=== PATIENT | male | born 1945 | race Caucasian/White ===

== ENCOUNTER 2018-01-25 09:29 | Day surgery (SDC) | payer MEDICARE, SELFPAY ==
--- NOTE | 2018-01-25 | PATH_ITS ---
[facility] Accession Number: [id number] . 01 Material submitted: . GE JUNCTION . 02 Diagnosis: Gastroesophageal Junction, Biopsy: Squamocolumnar junctional mucosa with chronic active inflammation and erosion. A PAS stain is negative for fungal organisms. Negative for intestinal metaplasia. Negative for dysplasia and malignancy. [facility]/01/29/2018 . 02 Electronically signed: . Jessica Shanks MD, Pathologist NPI- [id number] . 01 Gross description: . GE JUNCTION: Received in formalin are multiple fragment(s) of naylor, soft tissue measuring 1.2 x 0.3 x 0.2 cm in aggregate submitted entirely in 1 cassette(s) /CKI /CKI . 02 Microscopic: . A PAS stain was performed to evaluate for fungal organisms and is negative. The control stain showed appropriate reactivity. . 02 Pathologist provided ICD-10: R10.9 . 02 CPT . 878867, 257531 Performed at: 01 [facility] [address], [place], [place] [id number] MD Anirudh Trujillo MD Phone: [phone] Performed at: 02 [facility] [address] [place], [place] [id number] MD Frank Gayle MD Phone: [phone]
[2018-01-25 10:05] VITALS: BP 149/73; PULSE 53; RESP 15; TEMP 36.4; O2SAT 100; BMI 25.7
[2018-01-25] MEDS: SODIUM CHLORIDE 0.9% 1,000 ML 200 ML IV (10:23)
--- NOTE | 2018-01-25 10:46 | PM.HP.1 ---
History of Present Illness Date Patient Seen: 01/25/18 Time Patient Seen: 10:46 Chief complaint: EGD 14759 Narrative: Patient is gentleman with known Pierson's esophagus here for surveillance examination. He has had no dysphagia. He takes omeprazole regularly. 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) Family & Social History Family History: Reviewed 01/25/18 by Pawel Phillips MD Social History: household members spouse Meds Home Medications Medication Instructions Recorded Confirmed Type ferrous sulfate [iron] 325 mg PO DAILY 01/25/18 01/25/18 History multivitamin [One Daily] 1 tab PO DAILY 01/25/18 01/25/18 History niacin 1,000 mg PO BID 01/25/18 01/25/18 History omeprazole 20 mg PO DAILY 01/25/18 01/25/18 History psyllium husk [Metamucil] 0.4 g PO DAILY PRN 01/25/18 01/25/18 History tamsulosin 0.4 mg PO DAILY 01/25/18 01/25/18 History Allergies Allergy/AdvReac Type Severity Reaction Status Date / Time No Known Drug Allergies Allergy Verified 01/25/18 09:54 Review of Systems Review of Systems Has had a cough in the past. No active chest pain. No black or bloody bowel movements. No hematemesis. No seizures or blackouts. Exam Vital Signs (past 8 hours): - 01/25/18 10:05 Temperature 97.6 F Pulse Rate 53 L Respiratory Rate 15 Blood Pressure 149/73 H Pulse Oximetry 100 Oxygen Delivery Method Room Air Narrative Exam Narrative: Operative no apparent distress. Eyes nonicteric. Lungs are clear to auscultation without rales or rhonchi. Heart regular rate and rhythm without murmur gallop. Abdomen is protuberant soft nontender without mass. Patient is alert and oriented. Assessment & Plan Plan: Assessment/Plan Narrative: Patient with Pierson's esophagus. Last exam was 3 years ago. He is here for surveillance. I discussed the procedure for with him and his . Risks of bleeding and perforation discussed. He appears to understand and wishes to proceed.
--- NOTE | 2018-01-25 10:50 | PM.PREOP ---
Pre-operative Note Interval Note Pre-op Check: Yes History & Physical exam performed today by Physician Changes: No ASA Class (for procedural sedation): II
--- NOTE | 2018-01-25 11:01 | SUR.OPER ---
GLASSES IN LABELED CONTAINER TO DISCHARGE WITH PATIENT.
[2018-01-25] MEDS: TETRACAINE/BENZOCAINE/BUTAMBEN (CETACAINE) BOTTLE 1 SPRAY TOP (11:07)
[2018-01-25] MEDS: LIDOCAINE 4% SOLN 50 ML 20 ML TOP (11:07)
[2018-01-25] MEDS: MIDAZOLAM 5 MG/5 ML VIAL IV (11:13)
[2018-01-25] MEDS: fentaNYL 250 MCG/5 ML INJ IV (11:14)
--- NOTE | 2018-01-25 11:14 | PM.OP.ENDO ---
Operative Date/Time/Diagnoses Date of procedure: 01/25/18 Time of procedure: 11:14 Pre-op diagnosis: History of Pierson's esophagus Post-op diagnosis: same (With Schatzki ring at 40 cm.) Procedure & Clinicians Study performed: EGD with cold biopsy Same procedure as scheduled: Yes Indications: Surveillance of Pierson's Surgeon: Pawel Phillips Procedure Notes SCOAP/Timeout: Performed Procedure in detail: The patient had topical anesthetic applied to oropharynx. She was placed in left lateral decubitus position and underwent IV sedation directed by the surgeon consisting of fentanyl and Versed. A bite block was inserted and the scope was advanced through it into the esophagus. The esophagus was unremarkable. GE junction was noted at about 40 cm from the incisors. There was a Schatzki ring at this area. I easily passed through it into the stomach. The stomach insufflated well. There were no lesions seen in the body, antrum or at the incisura. The pyloric channel was patent. The duodenum was unremarkable to the 4th part. The scope was brought back into the stomach and retroflexed. The proximal stomach[normal in appearance]. The scope was straightened and brought out through the esophagus again. Multiple biopsies were taken at the Schatzki ring a/GE junction. No other lesions were seen. The scope was removed and the patient tolerated the procedure well. Scope withdrawal time: Not applicable Sedation minutes: 13 Findings: Pierson's esophagus (History of based on prior biopsies) and stricture (Schatzki ring) Recommendations: EGD in 3 years Follow up: as needed Disposition: PACU
[2018-01-25 11:19] VITALS: BP 139/77; PULSE 55; RESP 13; O2SAT 95
[2018-01-25 11:24] VITALS: BP 136/77; PULSE 61; RESP 13; O2SAT 95
--- NOTE | 2018-01-25 11:27 | SUR.PHASEI ---
Assumed care. Pt denied pain. Swallowing water without difficulty
[2018-01-25 11:30] VITALS: BP 150/74; PULSE 68; RESP 18; O2SAT 96
[2018-01-25 11:42] VITALS: BP 159/81; PULSE 56; RESP 15; TEMP 36.4; O2SAT 96
== END 2018-01-25 12:08 | disposition home or self-care (01) ==
PROVIDERS: Family Provider Naturopath; PCP Naturopath; Visit Provider Specialist
PROC: 0DJ08ZZ Inspection of Upper Intestinal Tract, Via Natural or Artificial Opening Endoscopic (ICD-10-PCS; CPT 43235; principal; 2018-01-25 10:45)
DX: Z87.19 Personal history of other diseases of the digestive system (principal); K22.2 Esophageal obstruction
CPT/HCPCS: 43239; 88305; 88312; 99152; J2250; J3010

== ENCOUNTER 2020-11-19 09:56 | Day surgery (SDC) | payer MEDICARE, SELFPAY ==
[2020-11-19] VITALS (7 sets, daily range): BP systolic 120–168; BP diastolic 59–79; PULSE 52–69; RESP 12–16; TEMP 36.3–36.9; O2SAT 98–100; BMI 25.0
--- NOTE | 2020-11-19 | PATH_ITS ---
[facility] Accession Number: [id number] . 01 Material submitted: . PART A: esophagus, E-G Junction - GE JUNCTION PART B: body - BIOPSY AT 35CM . 02 Diagnosis: A. Gastroesophageal Junction, Biopsy: Squamocolumnar junctional mucosa with mild chronic inflammation and columnar foveolar hyperplasia. A PAS stain is negative for fungal organisms. Negative for intestinal metaplasia by alcian blue stain. Negative for dysplasia and malignancy. . B. Colon, 35 cm, Biopsy: Colonic mucosa with no diagnostic abnormality. Negative for active, chronic, and microscopic colitis. Negative for dysplasia and malignancy. [facility] 11/24/2020 1538 Local . 02 Electronically signed: . Jessica Shanks MD, Pathologist NPI- [id number] . 01 Gross description: . A. The specimen is received in formalin, labeled GE junction, and consists of multiple naylor fragments of soft tissue measuring 0.7 x 0.6 x 0.2 cm in aggregate. The specimen is entirely submitted in cassette A1. B. The specimen is received in formalin, labeled 35 cm, and consists of a 0.5 x 0.4 x 0.2 cm naylor fragment of soft tissue which is entirely submitted in cassette B1. ([id number]) /[facility] 11/20/2020 1356 Local . 02 Microscopic: . A. An AB/PAS stain was performed to evaluate for intestinal metaplasia and fungal organisms, respectively, and is negative for both intestinal metaplasia and fungal organisms. The control stain showed appropriate reactivity. . B. Additional levels were examined. . * This test was developed and its performance characteristics determined by [employer]. It has not been cleared or approved by the U.S. Food and Drug Administration. The FDA has determined that such clearance or approval is not necessary. This test is used for clinical purposes. It should not be regarded as investigational or for research. . 02 Pathologist provided ICD-10: Z12.11 . 02 CPT . 479799, 633700, 655050 Performed at: 01 [facility] [address] [id number] MD Anirudh Trujillo MD Phone: [phone] Performed at: 02 [facility] [address] [place] [id number] MD Jessica Shanks MD Phone: [phone]
[2020-11-19] MEDS: LACTATED RINGERS 1,000 ML 200 ML IV (10:32)
[2020-11-19] MEDS: fentaNYL 250 MCG/5 ML INJ IV (11:09)
[2020-11-19] MEDS: MIDAZOLAM 5 MG/5 ML VIAL IV (11:10)
[2020-11-19] MEDS: LIDOCAINE 4% SOLN 50 ML 20 ML TOP (11:10)
--- NOTE | 2020-11-19 11:22 | PM.HP.1 ---
History of Present Illness History of Present Illness Date Patient Seen: 11/19/20 Time Patient Seen: 11:22 Chief complaint: SDC Narrative: The patient is a gentleman who thinks his last colonoscopy was about 10 years ago. He recalls that at his 1st colonoscopy he may have had polyps removed. Additionally he has known Pierson's esophagus and is here for an EGD. He had a few days where he was having difficulty swallowing and change the way he took his omeprazole and that seemed to improved. He has not had any of that recently. Patient History Medical History (Updated 11/19/20 @ 11:23 by Pawel Phillips MD) Pierson's esophagus determined by biopsy BPH associated with nocturia Ocular migraine Family & Social History Social History: household members spouse Tobacco & Substance use: Smoking Status Never smoker alcohol intake frequency a few times a month Substance Use Type does not use Meds Home Medications and Allergies Home Medications Medication Instructions Recorded Confirmed Type ferrous sulfate [iron] 325 mg PO DAILY 01/25/18 11/19/20 History multivitamin [One Daily] 1 tab PO DAILY 01/25/18 11/19/20 History niacin 1,000 mg PO BID 01/25/18 11/19/20 History omeprazole 20 mg PO DAILY 01/25/18 11/19/20 History psyllium husk [Metamucil] 0.4 g PO DAILY PRN 01/25/18 11/19/20 History tamsulosin 0.4 mg PO DAILY 01/25/18 11/19/20 History famotidine 20 mg PO DAILY 11/18/20 11/19/20 History losartan 50 mg PO DAILY 11/18/20 11/19/20 History Allergies Allergy/AdvReac Type Severity Reaction Status Date / Time No Known Drug Allergies Allergy Verified 01/25/18 09:54 Review of Systems Review of Systems ROS: Yes All systems reviewed with the patient and are negative except as otherwise documented Exam Vital Signs (past 8 hours): - 11/19/20 10:24 Temperature 97.3 F L Pulse Rate 52 L Respiratory Rate 13 Blood Pressure 168/79 H Pulse Oximetry 98 Oxygen Delivery Method Room Air Oxygen Flow Rate 0 Narrative Exam Narrative: Pleasant cooperative patient no apparent distress. Lungs are clear to auscultation. No rales or rhonchi. Heart regular rate and rhythm no murmur gallop. Abdomen is soft nontender without mass. No obvious hernias. Patient is alert and oriented x3. Assessment & Plan Assessment & Plan narrative: The patient for a screening colonoscopy. I have discussed the procedure with them. Risks of bleeding, perforation which would necessitate major operation, failure to find remove all lesions, the potential tattoo were all discussed. All questions were answered. They wished to proceed.
--- NOTE | 2020-11-19 11:25 | PM.PREOP ---
Pre-operative Note COVID-19 COVID-19 status: Negative Result date/Date tested (Pos, Neg/Pending): 11/18/20 Interval Note History & Physical reviewed/Exam performed by Physician: Yes Changes to H&P: No ASA Class (for procedural sedation): II
--- NOTE | 2020-11-19 12:24 | PM.OP.ENDO ---
Operative Date/Time/Diagnoses Date of procedure: 11/19/20 Time of procedure: 12:24 Pre-op diagnosis: History of Pierson's esophagus. Due for screening colonoscopy. Procedure & Clinicians Study performed: EGD with cold biopsy. Colonoscopy. Same procedure as scheduled: Yes Indications: Pierson's esophagus surveillance. Last EGD 3 years ago. Colonoscopy for colon cancer screening. Last colonoscopy about 10 years ago. Patient does have a personal history of polyps. Surgeon: Pawel Phillips Procedure Notes SCOAP/Timeout: Performed Procedure in detail: Patient is placed in left lateral decubitus position underwent IV sedation directed by the surgeon consisting of fentanyl and Versed. He had gargled with topical anesthetic prior to sedation. A bite block was inserted. Scope was advanced through it into the esophagus. The esophagus was unremarkable until I reach the distal esophagus where there was an obvious hiatal hernia and a twist at the end of the esophagus. There was no distinct narrowing however. I passed through into the stomach which insufflated well. There were no lesions in the body antrum with the incisura. The pyloric channel was patent. The duodenum was unremarkable to the 4th part. The scope was brought back into the stomach and retroflexed. Hiatal hernia was seen well from below. Scope was slowly withdrawn. The hiatal hernia length was about 2-3 cm. Biopsies were taken at the GE junction. The scope was slowly removed. The patient was reposition. The patient was reposition and underwent additional IV sedation directed by the surgeon consisting of fentanyl and Versed. Digital exam was unremarkable. The distal portion of the prostate I could feel felt normal.. The scope was inserted and advanced through the rectum into the sigmoid, descending, transverse, and ascending colon. I had to reposition the patient and insert a stiffener in apply pressure to get to the right colon. Patient was noted to have sigmoid diverticulosis and occasional right-sided diverticuli.. The cecum was reached identified by the ileocecal valve and the appendiceal opening. The scope was gradually brought out. No Polyps were found. The scope ultimately was retroflexed in the rectum. The appearance was normal. The scope was removed and the patient tolerated the procedure well. The prep was very good. Scope withdrawal time: 10 minutes Sedation minutes: 46 Findings: Pierson's esophagus, diverticulosis and hiatal hernia Specimen(s): other (GE junction biopsies) Complications: none Post-procedure Recommendations: Colonscopy in 5 years and EGD in 3 years Follow up: as needed Disposition: PACU
== END 2020-11-19 13:07 | disposition home or self-care (01) ==
PROVIDERS: Family Provider Naturopath; PCP Physician Assistant; Referring Provider Specialist; Visit Provider Specialist
PROC: 0DJ08ZZ Inspection of Upper Intestinal Tract, Via Natural or Artificial Opening Endoscopic (ICD-10-PCS; CPT 43235; principal; 2020-11-19 11:00)
PROC: 0DJD8ZZ Inspection of Lower Intestinal Tract, Via Natural or Artificial Opening Endoscopic (ICD-10-PCS; CPT 45378; 2020-11-19 11:00)
DX: Z12.11 Encounter for screening for malignant neoplasm of colon (principal); K22.70 Barrett's esophagus without dysplasia; N40.1 Benign prostatic hyperplasia with lower urinary tract symptoms; R35.1 Nocturia; K44.9 Diaphragmatic hernia without obstruction or gangrene; K57.30 Diverticulosis of large intestine without perforation or abscess without bleeding
CPT/HCPCS: 43239; G0121; 99152; 99153; J2250; J3010

== ENCOUNTER 2024-01-30 12:15 | Day surgery (SDC) | payer MEDICARE, SELFPAY ==
--- NOTE | 2024-01-30 | PATH_ITS ---
[facility] Accession Number: [id number] No. of containers..01 Tissue . 01 Material submitted: . esophagus, E-G Junction - GE JUNCTION . 01 Clinical history: . HISTORY OF TONEY'S . 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 No dysplasia identified. [facility] 02/01/2024 1616 Local . 01 Electronically signed: . Anirudh Trujillo MD, Pathologist NPI- [id number] . 01 Gross description: . GE JUNCTION: Received in formalin are 3 fragment(s) of naylor, soft tissue measuring 0.1 x 0.1 x 0.1 cm to 0.5 x 0.1 x 0.1 cm submitted entirely in 1 cassette(s) /[facility] 02/01/2024 1616 Local . 01 Microscopic: . GE JUNCTION: An ABPAS stain was performed, demonstrating the presence of focal goblet cell metaplasia. The control stains appropriately. . 01 Pathologist provided ICD-10: K22.70 . 01 CPT . 168774, 359140 Specimen Comment: A courtesy copy of this report has been sent to [phone] Performed at: 01 [facility] [address], [place], [place] [id number] MD Anirudh Trujillo MD Phone: [phone]
--- NOTE | 2024-01-30 12:42 | PM.HP.1 ---
History of Present Illness History of Present Illness Date Patient Seen: 01/30/24 Chief complaint: SDC Narrative: History of Pierson's esophagus [facility] Medical History (Updated 11/19/20 @ 11:23 by Pawel Phillips MD) Ocular migraine Pierson's esophagus determined by biopsy BPH associated with nocturia Social History household members: spouse Smoking Status: Never smoker Meds Home Medications and Allergies Home Medications Medication Instructions Recorded Confirmed Type ferrous sulfate 325 mg (65 mg 325 mg PO DAILY 01/25/18 11/19/20 History iron) tablet (iron) multivitamin (One Daily tablet) 1 tab PO DAILY 01/25/18 11/19/20 History niacin 1,000 mg tablet,extended 1,000 mg PO BID 01/25/18 11/19/20 History release omeprazole 20 mg capsule,delayed 20 mg PO DAILY 01/25/18 11/19/20 History release psyllium husk 0.4 gram capsule 0.4 g PO DAILY PRN Constipation 01/25/18 11/19/20 History (Metamucil) tamsulosin 0.4 mg capsule 0.4 mg PO DAILY 01/25/18 11/19/20 History famotidine 20 mg tablet 20 mg PO DAILY 11/18/20 11/19/20 History losartan 50 mg tablet 50 mg PO DAILY 11/18/20 11/19/20 History Allergies Allergy/AdvReac Type Severity Reaction Status Date / Time No Known Drug Allergies Allergy Verified 01/25/18 09:54 Exam Narrative Exam Narrative: Oropharynx free of lesions Chest clear to auscultation percussion Cardiac exam reveals no S3 or murmur Assessment & Plan Assessment & Plan narrative: History of Pierson's esophagus due for 3 year follow-up. Risks, benefits, alternatives have been explained. Time-Based Coding :: [TOTAL MINUTES] spent with patient and on the chart (including review of chart, obtaining history, exam, reviewing outside data, placing orders, documenting exam and treatment plan, and counseling patient) on [DATE].
--- NOTE | 2024-01-30 12:43 | PM.OP.EGD ---
Operative Date/Time/Diagnoses Date of procedure: 01/30/24 Pre-op diagnosis: See indication and findings Procedure & Clinicians Study performed: EGD Indications: History of Barretts esophagus Surgeon: Rox Arreguin Procedure Notes Procedure in detail: After informed consent was obtained the patient was placed in left lateral decubitus position. The video upper scope placed into the oropharynx and with the patient's help swallowed into the esophagus. The esophagus stomach and duodenum were carefully examined. On withdrawal, retroflexed view the GE junction was performed. The scope was removed. The patient tolerated procedure well. Blood loss none Complications none Sedation mac Findings 1. Completely normal esophagus down to the squamocolumnar junction 2. Here there were very small irregularities of the GE junction all less than 0.5 cm 4 biopsies taken at the slightly irregular portions. Overall however the squamocolumnar junction was very irregular particularly is seen on retroflexed view 3. 6 cm hiatal hernia 4. Normal distal stomach and duodenal bulb and sweep Given patient's age I do not think he will need follow-up endoscopy in the future. One might be considered if if he is in excellent health the in 3 years. We will be in touch regarding his biopsies
[2024-01-30 12:54] VITALS: BP 129/70; PULSE 66; RESP 16; TEMP 36.8; O2SAT 100
[2024-01-30] MEDS: LACTATED RINGERS 1,000 ML 42 ML IV (12:57)
--- NOTE | 2024-01-30 13:24 | SUR.OPER ---
EGD SCOPE 043
[2024-01-30 13:34] VITALS: BP 125/62; PULSE 65; RESP 14; TEMP 36.3; O2SAT 96
[2024-01-30 13:39] VITALS: BP 121/58; PULSE 63; RESP 14; O2SAT 96
[2024-01-30 13:44] VITALS: BP 137/67; PULSE 67; RESP 16; O2SAT 97
[2024-01-30 13:49] VITALS: BP 138/70; PULSE 65; RESP 16; TEMP 36.3; O2SAT 99
== END 2024-01-30 14:32 | disposition home or self-care (01) ==
PROVIDERS: Family Provider Naturopath; PCP Registered Nurse; Referring Provider Internal Medicine Gastroenterology; Visit Provider Internal Medicine Gastroenterology
PROC: 0DJ08ZZ Inspection of Upper Intestinal Tract, Via Natural or Artificial Opening Endoscopic (ICD-10-PCS; CPT 43235; principal; 2024-01-30 14:00)
DX: K22.70 Barrett's esophagus without dysplasia (principal); K44.9 Diaphragmatic hernia without obstruction or gangrene
CPT/HCPCS: 43239; J2704